=== PATIENT | male | born 1995 | race Caucasian/White ===

== ENCOUNTER 2025-07-06 16:31 | Emergency (ER) | payer OTHER, SELFPAY ==
[2025-07-06 16:52] VITALS: BP 160/89; PULSE 76; TEMP 36.8; O2SAT 100; BMI 23.1
--- NOTE | 2025-07-06 17:16 | USR_ITS ---
PROCEDURE INFORMATION: Exam: US Scrotum Exam date and time: 07/06/2025 5:45 PM Age: 30 years old Clinical indication: Injury or trauma; Other: Hit in testicles; Work related; Blunt trauma; Scrotal; Injury date: 07/06/2025 TECHNIQUE: Imaging protocol: Real-time ultrasound of the scrotum and contents with color Doppler and image documentation. COMPARISON: No relevant prior studies available. FINDINGS: Right testicle: Normal. 5 x 2.7 x 3.6 cm. No mass. Normal color Doppler and arterial waveforms. No torsion. Left testicle: Normal. 4.7 x 2.7 x 3 cm. No mass. Normal color Doppler and arterial waveforms. No torsion. Epididymides: No evidence of epididymitis. Scrotum/soft tissues: No varicocele. Trace fluid collections, more so on the right. US/US scrotum [id number] IMPRESSION: No evidence of orchitis, epididymitis, or torsion. No trauma to either testicle is visualized.
--- NOTE | 2025-07-06 17:26 | ED_ITS ---
HPI - Male Genitourinary General: Chief complaint: Urogenital-Male Stated complaint: Hit in the groin Time Seen by Provider: 07/06/25 16:57 Source: patient Mode of arrival: ambulatory Limitations: no limitations History of Present Illness: Patient is a 30-year-old male who presents the emergency department after testicular trauma occurred just prior to coming in. States that he got hit by a large piece of wood on accident in the groin region, has pain to the pelvis and left testicle. Notes that there is no significant swelling but the pain did cause him to go to his knees due to the pain. Has not had any hematuria, no nausea or vomiting. Reports moderate to severe pain at this time. His vitals are stable. MD Complaint: testicle pain and other (testicle trauma) Onset (ago): minute(s) Duration: constant Location: left testicle and left inguinal region Context: trauma Associated symptoms: Deny dysuria, hematuria, nausea or vomiting Related Data Allergies Allergy/AdvReac Type Severity Reaction Status Date / Time No Known Allergies Allergy Verified 07/06/25 16:56 Review of Systems General: Reports: 10 or more systems reviewed and unremarkable except in HPI and below Const: Denies: fever(s), chills, change in appetite, change in weight or diap horesis ENMT: Denies: throat pain or hoarseness Card: Denies: chest pain, palpitations or lightheadedness Resp: Denies: dyspnea, productive cough or wheezing GI: Denies: nausea, vomiting, diarrhea, constipation, bloating, change in stool character or hematochezia : Reports: testicular pain; Denies: flank pain, difficulty urinating, dysuria, urinary frequency, urinary urgency, hematuria or penile discharge Musc: Denies: neck pain or back pain Skin/Breast: Denies: rash or new lesions Neuro: Denies: headache(s) or dizziness Physical Exam Const: COMMON NORMALS: no acute distress, average body habitus, patient oriented x3, no limitations, healthy appearing, alert and well nourished GENERAL APPEARANCE: cooperative and comfortable ORIENTATION/CONSCIOUSNESS: Yes awake GI: COMMON NORMALS: Normal to inspection, nondistended, normoactive bowel sounds present, Soft to palpation, non-tender, No hepatosplenomegaly present and no masses AUSCULTATION: Yes normoactive bowel sounds PALPATION: Yes Soft to palpation, No Guarding due to palpation present (GI), No Rigid due to palpation and Yes No hepatosplenomegaly present RECTAL EXAM: Yes deferred : COMMON NORMALS: Yes no CVA tenderness BLADDER/KIDNEY EXAM: Yes no CVA tenderness MEATUS: meatus normal OTHER: Tender to palpation left testicle and left inguinal region. No scrotal swelling or bruising. Back/Pelvis: COMMON NORMALS: no CVA tenderness Extremity: COMMON NORMALS: normal to inspection and full ROM Neuro: COMMON NORMALS: patient oriented x3, moves all extremities, no focal motor deficits and no sensory deficits noted SENSORIUM/ORIENTATION: Yes alert Psych: COMMON NORMALS: mental status grossly normal, cooperative and speech normal SPEECH: Yes normal speech Skin: COMMON NORMALS: no rashes or lesions noted GENERAL SKIN EXAM: no rashes or lesions noted Course Vital Signs: Vital signs: Vital Signs Temperature 98.3 F 07/06/25 16:52 Pulse Rate 76 07/06/25 16:52 Blood Pressure 160/89 07/06/25 16:52 Pulse Oximetry 100 07/06/25 16:52 Oxygen Delivery Me thod Room Air 07/06/25 16:52 [facility] - Male Medical Decision Making Patient presented after being struck in the groin by a large tree. Exam was unremarkable there was no obvious signs of scrotal swelling or bruising but he was tender. Ultrasound negative for any traumatic findings. Urinalysis not s how any blood. Overall stable for discharge home. It was work-related injury. Lab Data Radiology Impressions Scrotum Ultrasound 07/06/25 17:16 IMPRESSION: No evidence of orchitis, epididymitis, or torsion. No trauma to either testicle is visualized. Laboratory Results Urine Color Yellow (Yellow) 07/06/25 17:20 Urine Appearance Clear (CLEAR) 07/06/25 17:20 Urine pH 7.0 (5-7) 07/06/25 17:20 Ur Specific [place] 1.003 (1.005-1.030) L 07/06/25 17:20 Urine Protein Negative (Negative) 07/06/25 17:20 Urine Glucose (UA) Negative (Normal) 07/06/25 17:20 Urine Ketones Negative (Negative) 07/06/25 17:20 Urine Blood Negative (Negative) 07/06/25 17:20 Urine Nitrate Negative (Negative) 07/06/25 17:20 Urine Bilirubin Negative (Negative) 07/06/25 17:20 Urine Urobilinogen 0.2 mg/dL (Negative) 07/06/25 17:20 Ur Leukocyte Esterase Negative (Negative) 07/06/25 17:20 Urine RBC 0-2 /hpf (0-2) 07/06/25 17:20 Urine WBC 0-5 /hpf (0-5) 07/06/25 17:20 Ur Squamous Epith Cells 0-5 /hpf (0-5) 07/06/25 17:20 Amorphous Sediment Not Reportable 07/06/25 17:20 Urine Bacteria None seen /hpf (NONE) 07/06/25 17:20 Hyaline Casts 0-4 /lpf H 07/06/25 17:20 All radiology interpretation(s) finalized by discharge Discharge Plan Discharge Patient Disposition: Home Clinical Impression: Work related injury Contusion of scrotum Qualifiers: Encounter type: initial encounter Qualified Code(s): S30.22XA - Contusion of scrotum and testes, initial encounter Condition: Stable Discharge Orders: Discharge ED (Routine); Ordered 07/06/25 Ordered By: Bird Robles Patient Instructions: Patient Portal & [place] Instructions Activity Restrictions/Additional Instructions: Scrotal Contusion Discharge You have been diagnosed with a scrotal contusion (bruise) after a work-related injury. Your ultrasound and urine tests were normal, meaning there is no serious damage to your testicles or urinary tract. What to do at home: - Rest: Limit strenuous activity for several days. Avoid heavy lifting, running, or sports until pain and swelling improve. - Ice: Apply an ice pack (wrapped in a cloth) to the scrotum for 15?20 minutes every 2?3 hours for the first 48 hours to reduce swelling and pain. - Elevation: When possible, elevate the scrotum using supportive underwear or a folded towel to help decrease swelling. - Pain relief: Take [id number] pain medication (such as acetaminophen or ibuprofen) as needed, following package instructions. - Support: Wear snug, supportive underwear (like briefs) to minimize movement and discomfort. What to expect: - Mild pain, swelling, and bruising are common and should improve over several days. - Most people recover fully with supportive care and do not need surgery. When to seek medical attention: - Increasing pain, swelling, or bruising that does not improve or gets worse. - Trouble urinating, blood in urine, fever, or nausea. - New lumps or changes in the testicle. - Severe pain or sudden swelling. Follow-up: - If symptoms persist beyond two weeks, or if you notice any new changes, contact your healthcare provider for further evaluation. - Rarely, prolonged pain can occur after scrotal trauma; ongoing symptoms may require repeat ultrasound or specialist review. Work and activity: - You may return to work when pain and swelling allow, but avoid activities that could risk further injury until fully healed. If you have any questions or concerns, please contact your healthcare provider. 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
[2025-07-06 17:39] LABS: Glucose Urine UA Negative (Normal); Nitrate Urine Negative (Negative); Specific Gravity, Urine 1.003 (1.005-1.030)
[2025-07-06 17:45] LABS: Add Urine Microscopic? YES
[2025-07-06] MEDS: HYDROcodone-acetaminophen 7.5-325 mg Tablet 1 TAB PO (18:27)
== END 2025-07-06 18:46 | disposition home or self-care (01) ==
PROVIDERS: Emergency Provider Physician Assistant
DX: S30.22XA Contusion of scrotum and testes, initial encounter (principal); W22.8XXA Striking against or struck by other objects, initial encounter
CPT/HCPCS: 76870; 81001; 99284; J9999

== ENCOUNTER 2025-07-08 22:52 | Emergency (ER) | payer OTHER, SELFPAY ==
[2025-07-08 22:54] VITALS: BP 133/75; PULSE 110; RESP 16; TEMP 37.1; O2SAT 98; BMI 23.1
--- NOTE | 2025-07-08 23:12 | W.ED.MALEGU ---
HPI - Male Genitourinary General: Chief complaint: Urogenital-Male Stated complaint: pain worse, severe abd pain. popped in groin Time Seen by Provider: 07/08/25 23:01 Source: patient Mode of arrival: ambulatory Limitations: no limitations History of Present Illness: Patient is a 30-year-old male presents to ED today with complaint of genital pain. Patient states he was seen here 2 days ago after Worker's Comp. injury where he was struck to the genitals with a wooden board while at work. Ultrasound imaging at that point was unremarkable. Patient states he was feeling okay the following day and did have a follow-up telehealth visit which cleared him to return to work. 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 He has noticed a small amount of ecchymosis from the contusion 2 days ago. He has been urinating normally. No hematuria. He has not noted any obvious testicular/scrotal swelling. He is complaining of pain to his left testicle currently. He has not noticed any masses or bulges to his groin. MD Complaint: testicle pain and genital injury Onset (ago): day(s) Duration: constant Location: left testicle Radiation: left testicle Severity: severe Quality: aching and burning Relieving factors: none Exacerbating factors: palpation and movement Associated symptoms: Reports nausea; Deny dysuria, hematuria or vomiting Related Data Allergies Allergy/AdvReac Type Severity Reaction Status Date / Time No Known Allergies Allergy Verified 07/06/25 16:56 Review of Systems Const: Denies: fever(s) Card: Denies: chest pain Resp: Denies: dyspnea GI: Reports: nausea; Denies: vomiting, change in bowel habits, hematochezia or melena : Reports: genital pain and testicular pain; Denies: flank pain, difficulty urinating, dysuria, urinary frequency, urinary urgency, urinary hesitancy, hematuria, genital lesions, penile discharge, testicular mass or scrotal swelling Musc: Denies: back pain Neuro: Denies: dizziness Physical Exam Const: COMMON NORMALS: average body habitus, patient oriented x3, no limitations, healthy appearing, alert and well nourished GENERAL APPEARANCE: cooperative and in distress (appears uncomfortable-holding genitals) Resp: COMMON NORMALS: normal respiratory effort and clear to auscultation bilaterally AUSCULTATION: clear to auscultation bilaterally Cardio: COMMON NORMALS: regular rhythm RATE: tachycardic (felt to be secondary to pain) RHYTHM: regular rhythm GI: COMMON NORMALS: Normal to inspection, nondistended, normoactive bowel sounds present, Soft to palpation, No hepatosplenomegaly present and no masses INSPECTION: Yes normal to inspection PALPATION: Yes Soft to palpation, No Guarding due to palpation present (GI), No Rigid due to palpation and Yes No hepatosplenomegaly present GI image (male):  1. small area of ecchymosis that he states was there following contusion 2 days ago; appears to have some mild healing ecchymosis to penile shaft : COMMON NORMALS: Yes no CVA tenderness BLADDER/KIDNEY EXAM: Yes no CVA tenderness MALE GROIN/PERINEUM EXAM: Yes ecchymosis (penile shaft; small area above-see GI image) PENIS: ecchymosis (scant/healing) MEATUS: meatus normal SCROTUM: Yes Scrotal tenderness present and No scrotal swelling TESTES: No testicular swelling, Yes testicular tenderness Testicular tenderness laterality: left and No testicular mass OTHER: no inguinal masses/bulges Back/Pelvis: COMMON NORMALS: no CVA tenderness Neuro: COMMON NORMALS: patient oriented x3 SENSORIUM/ORIENTATION: Yes alert Course Vital Signs: Vital signs: Vital Signs Temperature 98.7 F 07/08/25 22:54 Pulse Rate 110 H 07/08/25 22:54 Respiratory Rate 18 07/08/25 23:26 Blood Pressure 133/75 07/08/25 22:54 Pulse Oximetry 98 07/08/25 23:26 Oxygen Delivery Me thod Room Air 07/08/25 22:54 MDM - Male Medical Decision Making Patient feeling better after medications given here. Blood work overall is nonactionable. UA with trace blood but otherwise normal. Ultrasound imaging repeated and is still unremarkable. Patient will be allowed discharge. Recommend follow-up with Worker's Comp. I think it is reasonable to consider urology follow-up if symptoms do not improve with conservative therapies. Medical Records I reviewed the patient's medical records. Lab Data I reviewed the patient's lab results. 07/08/25 23:35 07/08/25 23:35 Laboratory Results WBC 13.64 10^3/uL (3.29-11.43) H 07/08/25 23:35 RBC 4.71 10^6/uL (3.85-5.65) 07/08/25 23:35 Hgb 14.20 g/dL (11.27-16.99) 07/08/25 23:35 Hct 41.7 % (37-53) 07/08/25 23:35 MCV 88.5 fl (82-101) 07/08/25 23:35 MCH 30.1 pg (27-33) 07/08/25 23:35 MCHC 34.1 g/dL (30-55) 07/08/25 23:35 RDW 12.4 % (12.1-15.1) 07/08/25 23:35 Plt Count 331 10^3/cmm (157-399) 07/08/25 23:35 MPV 10.2 fL (7.4-10.4) 07/08/25 23:35 Neut % (Auto) 81.2 % 07/08/25 23:35 Lymph % (Auto) 10.7 % 07/08/25 23:35 [place] % (Auto) 7.0 % 07/08/25 23:35 Eos % (Auto) 0.3 % 07/08/25 23:35 Baso % (Auto) 0.4 % 07/08/25 23:35 Neut # (Auto) 11.07 10^3/uL (1.8-7.7) H 07/08/25 23:35 Lymph # (Auto) 1.5 10^3/uL (0.8-4.8) 07/08/25 23:35 [place] # (Auto) 1.0 10^3/uL (0.2-0.9) H 07/08/25 23:35 Eos # (Auto) 0.0 10^3/uL (0.0-0.8) 07/08/25 23:35 Baso # (Auto) 0.1 10^3/uL (0.0-0.1) 07/08/25 23:35 Nucleated RBC % (auto) 0 % 07/08/25 23:35 Nucleated RBCs # 0.0 /100WBC 07/08/25 23:35 Sodium 140 mmol/L (136-145) 07/08/25 23:35 Potassium 4.4 mmol/L (3.5-5.1) 07/08/25 23:35 Chloride 103 mmol/L (98-107) 07/08/25 23:35 Carbon Dioxide 24 mmol/L (22-29) 07/08/25 23:35 Anion Gap 17.4 (5-19) 07/08/25 23:35 BUN 22 mg/dL (6-20) H 07/08/25 23:35 Creatinine 0.9 mg/dL (0.7-1.2) 07/08/25 23:35 GFR Calculation 100.5 mL/min (90-130) 07/08/25 23:35 Glucose 103 mg/dL (65-115) 07/08/25 23:35 Calculated Osmolality 294 mOsm/kg (285-295) 07/08/25 23:35 Calcium 9.8 mg/dL (8.5-10.5) 07/08/25 23:35 Total Bilirubin 0.3 mg/dL (0.15-1.2) 07/08/25 23:35 AST 19 U/L (0-40) 07/08/25 23:35 ALT 13 U/L (0-41) 07/08/25 23:35 Alkaline Phosphatase 65 U/L (40-130) 07/08/25 23:35 Total Protein 7.4 g/dL (6.6-8.7) 07/08/25 23:35 Albumin 5.2 g/dL (3.5-5.2) 07/08/25 23:35 Globulin 2.2 g/dL (1.3-4.6) 07/08/25 23:35 Urine Color Yellow (Yellow) 07/08/25 23:14 Urine Appearance Clear (CLEAR) 07/08/25 23:14 Urine pH 5.5 (5-7) 07/08/25 23:14 Ur Specific [place] 1.023 (1.005-1.030) 07/08/25 23:14 Urine Protein Negative (Negative) 07/08/25 23:14 Urine Glucose (UA) Negative (Normal) 07/08/25 23:14 Urine Ketones Negative (Negative) 07/08/25 23:14 Urine Blood Trace (Negative) A 07/08/25 23:14 Urine Nitrate Negative (Negative) 07/08/25 23:14 Urine Bilirubin Negative (Negative) 07/08/25 23:14 Urine Urobilinogen 0.2 mg/dL (Negative) 07/08/25 23:14 Ur Leukocyte Esterase Negative (Negative) 07/08/25 23:14 Urine RBC 0-2 /hpf (0-2) 07/08/25 23:14 Urine WBC 0-5 /hpf (0-5) 07/08/25 23:14 Ur Squamous Epith Cells 0-5 /hpf (0-5) 07/08/25 23:14 Amorphous Sediment Not Reportable 07/08/25 23:14 Urine Bacteria None seen /hpf (NONE) 07/08/25 23:14 Hyaline Casts 0-4 /lpf H 07/08/25 23:14 XR interpretation done by ED provider, pending radiology final review (per Pardeep mango-negative study) Discharge Plan Discharge Patient Disposition: Home Clinical Impression: Contusion of scrotum Qualifiers: Encounter type: initial encounter Qualified Code(s): S30.22XA - Contusion of scrotum and testes, initial encounter Groin strain Qualifiers: Encounter type: initial encounter Laterality: left Qualified Code(s): S76.212A - Strain of adductor muscle, fascia and tendon of left thigh, initial encounter Condition: Stable Discharge Orders: Discharge ED (Routine); Ordered 07/09/25 Ordered By: Jenna Busby Patient Instructions: Patient Portal & [place] Instructions Activity Restrictions/Additional Instructions: As we discussed, you may apply ice to the area for 20 to 30 minutes every other hour. Make sure you have a barrier such as a washcloth. We discussed tight/supportive underwear. You need to limit twisting, turning, bending over, lifting. I think it is reasonable for you to follow-up with urology if symptoms persist. 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
[2025-07-08 23:24] LABS: Glucose Urine UA Negative (Normal); Nitrate Urine Negative (Negative); Specific Gravity, Urine 1.023 (1.005-1.030)
[2025-07-08 23:26] VITALS: RESP 18; O2SAT 98
[2025-07-08 23:26] LABS: Add Urine Microscopic? YES
[2025-07-08] MEDS: morphine 4 mg/mL SDV 1 mL IM (23:26)
[2025-07-08] MEDS: ondansetron 2 mg/ML SDV 2 mL 4 MG IM (23:26)
[2025-07-09] LABS: Hematocrit 41.7 % (37-53); Hemoglobin 14.20 g/dL (11.27-16.99); Mean Corpuscular HGB Conc 34.1 g/dL (30-55); Mean Corpuscular Hemoglobin 30.1 pg (27-33); Mean Corpuscular Volume 88.5 fl (82-101); Nucleated Red Blood Cells % 0 %; Platelet Count 331 10^3/cmm (157-399); Red Blood Count 4.71 10^6/uL (3.85-5.65); White Blood Count 13.64 10^3/uL (3.29-11.43)
[2025-07-09 00:18] LABS: Alanine Aminotransferase 13 U/L (0-41); Albumin Level 5.2 g/dL (3.5-5.2); Alkaline Phosphatase 65 U/L (40-130); Anion Gap 17.4 (5-19); Aspartate Amino Transferase 19 U/L (0-40); Blood Urea Nitrogen 22 mg/dL (6-20); Calcium 9.8 mg/dL (8.5-10.5); Carbon Dioxide 24 mmol/L (22-29); Chloride 103 mmol/L (98-107); Creatinine Clr Calc Pharmacy 141.6918; Globulin 2.2 g/dL (1.3-4.6); Glucose 103 mg/dL (65-115); Osmolality Calculated 294 mOsm/kg (285-295); Potassium 4.4 mmol/L (3.5-5.1); Sodium 140 mmol/L (136-145); Total Protein 7.4 g/dL (6.6-8.7)
--- NOTE | 2025-07-09 07:08 | DCPLANNER ---
faxed outpatient referral to [facility] urology, images pushed.
--- NOTE | 2025-07-09 23:12 | USR_ITS ---
PROCEDURE INFORMATION: Exam: US Scrotum and US Duplex Artery and Vein, Scrotum, Complete Exam date and time: 07/09/2025 12:30 AM Age: 30 years old Clinical indication: Scrotum pain; Worker's comp injury on-the-job in local [facility] 2 days ago. 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 Patient was seen this er on 07/06/2025 with normal scrotal ultrasound. TECHNIQUE: Imaging protocol: Real-time ultrasound of the scrotum. Real-time duplex ultrasound scan of the arterial and venous flow of the scrotum with B-mode, color Doppler flow and spectral waveform analysis. Complete exam. Duplex exam was performed to evaluate for torsion and other vascular conditions. COMPARISON: US scrotum [id number] 07/06/2025 5:45 PM FINDINGS: Right: The right testicle measures 42 x 21 x 33 mm, estimated volume 15.6 cc. No visible intratesticular mass. Duplex Doppler evaluation, with color flow and spectral waveform analysis, demonstrates intratesticular arterial and venous blood flow. The right epididymis is normal in size and appearance. There is a very small amount of right scrotal fluid. Left: The left testicle measures 42 x 23 x 32 mm, estimated volume 16.2 cc. No visible intratesticular mass. Duplex Doppler evaluation, with color flow and spectral waveform analysis, demonstrates intratesticular arterial and venous blood flow. The left epididymis is normal in size and appearance. There is a very small amount of left scrotal fluid. US/US scrotum [id number] IMPRESSION: 1. No evidence for torsion by Doppler ultrasound. 2. No findings to suggest epididymitis. 3. Other details/findings discussed above.
== END 2025-07-09 01:15 | disposition home or self-care (01) ==
PROVIDERS: Emergency Provider Physician Assistant
DX: S30.22XA Contusion of scrotum and testes, initial encounter (principal); S76.212A Strain of adductor muscle, fascia and tendon of left thigh, initial encounter; W22.8XXA Striking against or struck by other objects, initial encounter
CPT/HCPCS: 36415; 76870; 80053; 81001; 85025; 96372; 99284; J2270; J2405